=== PATIENT | male | born 1960 | race Caucasian/White ===

== ENCOUNTER → 2017-03-30 | Outpatient (CLI) | payer OTHER ==
--- NOTE | 2017-03-30 15:37 | DIAGNOSTIC IMAGING REPORT ---
LUMBAR SPINE W/O CONTRAST HISTORY: Back pain. Spinal stenosis. LUMBAR STENOSIS TECHNIQUE: Multiplanar multisequence MRI of the lumbar spine was performed without the use of contrast. COMPARISON: None. FINDINGS: For the purpose of the report the L5-S1 disc space will be located on axial image 33 of 36. Diffuse heterogeneity of bone marrow signal throughout the entire thoracolumbar spine as well as sacrum. This is suggestive of age-related anemic change rather than metastatic change. No evidence for compression deformity. T12-L1: Broad-based disc herniation. Moderate impact anterior thecal sac. Mild narrowing of the neuroforamina bilaterally. L1-L2: No significant central canal or neural foraminal narrowing. L2-L3: Right central disc herniation. Significant impact upon the right neural foramina and right anterior thecal sac. Left neural foramen is patent. L3-L4: Broad-based disc herniation with hypertrophic changes of posterior elements. Moderate multifactorial spinal stenosis with moderate right neural foraminal stenosis. L4-L5: Mild osteophytic narrowing of the left neural foramina. No major impact upon the thecal sac. L5-S1: No significant central canal or neural foraminal narrowing. IMPRESSION: 1. Diffuse bone marrow heterogeneity suggesting age-related anemia. 2. Moderate multifactorial narrowing of the spinal canal at L3-L4 with mild/moderate narrowing of the neuroforamina bilaterally. 3. Prominent right central disc herniation L2-L3 narrowing the right neuroforamina and impacting the right anterior thecal sac. 4. Mild broad-based disc herniation T12-L1. The above report was generated using voice recognition software. It may contain grammatical, syntax or spelling errors. Electronically signed by: Tyrese Eng M.D. 03/30/2017 3:35 PM Dictated Date/Time: 03/30/2017 3:31 PM
== END | disposition home or self-care (01) ==
LOC: C.MRIBC 14:11
PROVIDERS: ATTEND Physician Assistant
DX: M48.062 Spinal stenosis, lumbar region with neurogenic claudication (principal); M51.26 Other intervertebral disc displacement, lumbar region